=== PATIENT | female | born 1955 | race Caucasian/White ===

== ENCOUNTER → 2021-01-21 | Outpatient (CLI) | payer BC ==
[~2021-01-21] MED LIST: ADVIL200 M3 PO; CALCIUM + VITA1 EACH PO; CENTRUM SILVER1 EAC6 PO; CYCLOBENZAPRINE5 MG PO; ESTRACE42.5 GM VAG; GLUCOSAMINE &1 EACH PO; LIPITOR 20 MG T20 M1 PO; LORATIDINE 10 M10 M1 PO; MELOXICAM15 MG PO; [UNRECOGNIZED DRUG - OTHER] PO
[2021-01-21 11:07] LABS: HEMATOCRIT 42.7 % (37.0-47.0); HEMOGLOBIN 13.9 gm/dL (12.0-15.0); MCH 29.5 pg (26.0-34.0); MCHC 32.7 g/dL (28.0-37.0); MCV 90.2 fL (80.0-100.0); RBC 4.73 mil/uL (4.20-5.00); RDW 14.2 % (10.5-14.5); WBC 6.9 thou/uL (4.0-11.0)
[2021-01-21 11:14] LABS: URINE BILIRUBIN NEGATIVE (Negative); URINE BLOOD NEGATIVE (Negative); URINE CLARITY CLEAR; URINE COLOR YELLOW; URINE GLUCOSE-RANDOM* NEGATIVE (Negative); URINE KETONES NEGATIVE (Negative); URINE LEUKOCYTES-REFLEX NEGATIVE (Negative); URINE NITRITE-REFLEX NEGATIVE (Negative); URINE PROTEIN (DIPSTICK) NEGATIVE (Negative); URINE SPECIFIC GRAVITY <= 1.005 (1.005-1.035); URINE UROBILINOGEN 0.2 E.U./dl (0.2-1.0)
--- NOTE | 2021-01-21 11:16 | EKG ---
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 : 1955 Requested By: Nathanael Magana Order Number: [id number] MD: Cornell Johnson Measurements Intervals Treynor Rate: 68 P: 40 IN: 174 QRS: 33 QRSD: 116 T: 33 QT: 371 QTc: 395 Interpretive Statements Sinus rhythm Nonspecific intraventricular conduction delay Borderline T abnormalities, anterior leads No previous ECG available for comparison Electronically Signed On 01-21-2021 11:15:57 CDT by Cornell Johnson [email or web address] <ELECTRONICALLY SIGNED> By: Cornell Johnson MD, [facility] 01/21/21 1115 1056 1056 Cornell Johnson MD, FACNisreen /EPI
[2021-01-21 11:21] LABS: INR 0.97; PROTIME 10.6 Seconds (10.5-12.1)
[2021-01-21 11:23] LABS: ALBUMIN 4.2 g/dL (3.4-5.0); CALCIUM 9.1 mg/dL (8.5-10.1); CREATININE 0.9 mg/dL (0.6-1.0); POTASSIUM 4.6 mmol/L (3.5-5.1)
== END ==
LOC: PAC
PROVIDERS: ATTEND Orthopaedic Surgery
DX: Z01.810 Encounter for preprocedural cardiovascular examination (principal); Z01.812 Encounter for preprocedural laboratory examination; M17.12 Unilateral primary osteoarthritis, left knee; R94.31 Abnormal electrocardiogram [ECG] [EKG]

== ENCOUNTER 2021-01-27 06:20 | Observation (INO) | payer BC ==
[~2021-01-27] VITALS: Ht 162.6 cm; Wt 67.6 kg
[2021-01-27 06:56] VITALS: BP 107/68
[2021-01-27 11:07] VITALS: BP 107/71
--- NOTE | 2021-01-27 11:41 | NUR ---
Pt transferred to unit from PACU. Pt a&ox4. Dressing c/d/i. Pain controlled with prn pain meds. Pt nauseous. Antiemetic administered. IVF infusing. Physical therapy will work with patient today. Family at bedside. Call light within reach. Fall precautions in place. Will continue to monitor.
--- NOTE | 2021-01-27 15:06 | NUR ---
ASSESSMENT: CM REVIEWED CHART AND MET WITH PATIENT AND HER ETELVINA AT THE BEDSIDE. PT IS ALERT AND ORIENTED X4. PT IS S/P LEFT TKA. PT REPORTS THAT SHE LIVES IN A HOUSE WITH AND HAS TWO STEPS WITH NO HANDRAIL TO ENTER. PT REPORTS ONCE INSIDE SHE HAS ONE STEP DOWN TO THE LIVING ROOM. PT REPORTS SHE HAS A CANE AND WALKER AT HOME TO ASSIST WITH AMBULATION. PT STATES SHE HAS A SHOWER CHAIR. PT REPORTS HAVING OUTPATIENT THERAPY ARRANGED AT [facility] TO BEGIN ON SUNDAY. CM DISCUSSED ROLE. PT DOES NOT ANTICIPATE HAVING ANY NEEDS FROM CM. PTS WILL BE ABLE TO PROVIDE TRANSPORT HOME. CM WILL CONTINUE TO FOLLOW TO ASSIST NEEDED.
[2021-01-27 15:54] VITALS: BP 104/73
[2021-01-27 20:23] VITALS: BP 95/60
--- NOTE | 2021-01-28 06:17 | NUR ---
ASSUMED PT CARE AT 2300.PT WAS ASLEEP AT SHIFT CHANGE.PT C/O PAIN TO HER L KNEE,MANAGED WITH MED.PT CONT IVF ORDERED.YUKIG C/D/I WITH POLAR PACK/SCD AND NORMA BECKWITHE IN PLACE.CALL LIGHT WITHIN REACH.
[2021-01-28 09:36] VITALS: BP 100/56
[2021-01-28 11:04] VITALS: BP 100/56
--- NOTE | 2021-01-28 12:18 | NUR ---
Chart review. Dc home when medically stable. She has walker already and is set up to start outpt therapy on sunday. Family will be able to transport her home at dc.
--- NOTE | 2021-02-03 11:33 | O ---
[facility] [place] [address] OPERATIVE REPORT Name: JODY MATHIAS Room #: 444-P [facility] Selena Lockett#: [id number] Admission: 01/27/21 Attend Phys: Nathanael Magana MD Discharge: 01/28/21 Date of : 59 Report #: [id number] THIS REPORT FOR: cc: Theresa West MD, Sarah Beth MD Abraham,Nathanael Alarcon MD ~ DOC #: [id number] Nathanael Magana MD DATE OF SERVICE: 01/27/2021 PREOPERATIVE DIAGNOSES: 1. Left knee osteoarthritis. 2. Retained hardware, proximal tibia, left POSTOPERATIVE DIAGNOSES: 1. Left knee osteoarthritis. 2. Retained hardware, proximal tibia, left PROCEDURES: 1. Left total knee arthroplasty using Navio robotic acquisitions assistant. 2. Hardware removal, left proximal tibia. SURGEON: Nathanael Magana MD. CHIEF PROJECTIONIST: Nicole Langston PA-C INDICATION FOR CHIEF PROJECTIONIST: Throughout the case extensive retraction and manipulation of the knee was required. This was afforded to me by my acquisitions assistant. ANESTHESIA: LMA with an adductor canal block. IMPLANTS: Loredo and Nephew size 3 Journey II BCS Oxinium femur, size 2 tibia, size 11 polyethylene and size 32 patella. TOURNIQUET TIME: 59 minutes. ESTIMATED BLOOD LOSS: 25 mL COMPLICATIONS: None. SPECIMENS: None. CONDITION UPON LEAVING THE OR: Stable. INDICATIONS FOR PROCEDURE: The patient is a 65-year-old female with left knee osteoarthritis. She had failed conservative measures from this and after [facility] [address] [place] [address] OPERATIVE REPORT Name: JODY MATHIAS Room #: 444-P [facility] Selena Lockett#: [id number] Admission: 01/27/21 Attend Phys: Nathanael Magana MD Discharge: 01/28/21 Date of : 59 Report #: [id number] discussion with her, she elected for left total knee arthroplasty. In addition, she has had a previous tibial tubercle osteotomy and had a single screw in her proximal medial tibia and we did discuss the possibility of hardware removal if needed. DESCRIPTION OF PROCEDURE: Risks, benefits, alternatives, complications were discussed in detail with the patient including but not limited to risk of anesthesia, risk of damage to nerves, arteries, blood vessels, risk for infection, bleeding, risk for continued knee pain, need for reoperation. Informed consent was obtained from the patient. The left knee was appropriately marked in the preoperative holding area. IV Ancef was given for preoperative antibiotics. She was brought to the operating room and placed in the supine position on the operating room table. LMA anesthesia was induced without complication. Tourniquet was placed on the left thigh. Left lower extremity was prepped and draped in normal sterile fashion. Timeout was performed properly identifying the patient and procedure as well as the instrumentation and implants. All in the operating room was in agreement. Left lower extremity was exsanguinated, tourniquet was inflated. Tourniquet time was 59 minutes. Standard midline approach to the knee was made with 10 blade through the skin. Dissection was taken down sharply to the fascia and deep flaps were developed medially and laterally. Medial parapatellar arthrotomy was made with 10 blade and the knee was inspected. There was severe tricompartmental osteoarthritis. ACL and PCL were removed sharply. Reference pins were placed in the femur and the tibia. The knee was digitally mapped using the Covelus robotic system. Intraoperative plan was made. We sized the size 3 femur, the size 2 tibia and a 10 spacer. After acceptance of the intraoperative plan. The distal femoral cut was made with a Navio bur. Distal femoral cutting block was pinned in place and chamfer cuts were made. Attention was turned to the tibia. Remainder of the menisci removed with Bovie cautery. Tibial resection guide was pinned in place and using the Navio for placement, tibial resection was made. Flexion and extension gaps were checked and found to have good balance medially and laterally both in flexion and extension. Tibia sized, found to be a size 3. Size 3 tibial trial was pinned and attempted to be drilled for the stem and the drill contacted the proximal medial tibial screw. This then had to be dissected out and removed with a plier. After this, tibia was drilled and punched. The size 3 femoral trial was placed, box cut was made. This was then trialed with a size 10 and then a size 11 polyethylene and a size 11 polyethylene demonstrated the best stability throughout range of motion of the knee, both digitally as well as manually. A 9 mm of bone was resected from the posterior surface of the patella and a size 32 patellar trial button was placed. Knee was taken through range of motion, found to be stable, found to have good patellar tracking. Trial components were removed. Bone ends were thoroughly irrigated with normal saline. A final size 2, tibia size 3 Journey II BCS Oxinium femur and a size 32 patella were cemented in place using standard cementation techniques. While the cement cured, a periarticular injection consisting of morphine, ropivacaine, [facility] [address] [place] [address] OPERATIVE REPORT Name: JODY MATHIAS Room #: 444-P SUMA[facility] McphersonChrisJerryChris#: [id number] Admission: 01/27/21 Attend Phys: Nathanael Magana MD Discharge: 01/28/21 Date of : 59 Report #: [id number] epinephrine, and Toradol was placed around the knee joint capsule. After the cement cured, tourniquet was deflated. Hemostasis was obtained with Bovie cautery. A final size 11 polyethylene was placed. A gram of vancomycin was placed deep in the joint. The fascia was closed with 0 Vicryl. Skin was closed with 2-0 Vicryl, skin staple and a CHUCKIE dressing was applied. The patient tolerated this procedure well and went to recovery room under care of anesthesia postoperatively. MD OSMAR Sepulveda/CLAUDETTE <ELECTRONICALLY SIGNED> By: Nathanael Magana MD 02/03/21 1133 1559 1627 Nathanael Magana MD /nt
== END 2021-01-28 12:30 | disposition home or self-care (01) ==
LOC: OR → TBA 06:20 → OR 06:20 → TBA 06:26 → 4S 10:16 → OR 10:46 → 4S 15:51 → OR 17:05 → 4S 01-28 12:30
PROVIDERS: ADMIT Orthopaedic Surgery; ATTEND Orthopaedic Surgery
DX: M17.12 Unilateral primary osteoarthritis, left knee (principal); T84.84XA Pain due to internal orthopedic prosthetic devices, implants and grafts, initial encounter; Z88.5 Allergy status to narcotic agent; Z88.2 Allergy status to sulfonamides; Y83.8 Other surgical procedures as the cause of abnormal reaction of the patient, or of later complication, without mention of misadventure at the time of the procedure; Y92.89 Other specified places as the place of occurrence of the external cause
CPT/HCPCS: 50010; 50101; 50415; 50954; 51130; 51225; 51320; 51412; 52001; 52282; 53000; 53078; 53365; 56528; 57095; 57103; 57110; 57127; 57180; 62110; 62900; 70005